=== PATIENT | male | born 1990 | race Two or more races ===

== ENCOUNTER 2022-07-22 11:22 | Emergency (ER) | payer MEDICAID ==
[~2022-07-22] VITALS: Ht 182.9 cm; Wt 83.0 kg
[2022-07-22 16:50] VITALS: BP 145/67
== END 2022-07-22 16:55 | disposition home or self-care (01) ==
LOC: ER 11:22
DX: S30.1XXA Contusion of abdominal wall, initial encounter (principal); X58.XXXA Exposure to other specified factors, initial encounter; Y93.89 Activity, other specified; Y92.89 Other specified places as the place of occurrence of the external cause; Y99.8 Other external cause status